=== PATIENT | male | born 1960 | race Caucasian/White ===

== ENCOUNTER → 2017-03-20 | Outpatient (CLI) | payer BC ==
[~2017-03-20] MED LIST: NAPR220C4 PO
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
== END | disposition home or self-care (01) ==
LOC: PNCL 09:23
PROVIDERS: ATTEND Anesthesiology
DX: M50.10 Cervical disc disorder with radiculopathy, unspecified cervical region (principal)
CPT/HCPCS: 99214

== ENCOUNTER → 2017-04-04 | Outpatient (CLI) | payer BC ==
[~2017-04-04] MED LIST changes: +IOHEXOL 180 MG/ML 10 ML VIAL. ONE; +methylPREDNISolone ACETATE 40 MG/ML VIAL. ONE; +methylPREDNISolone ACETATE 80 MG/ML VIAL. ONE
--- NOTE | 2017-04-04 12:56 | PAIN ---
DATE OF SERVICE: DIAGNOSES: Cervical radiculopathy with cervical degenerative disk disease, cervical spinal stenosis. HISTORY OF PRESENT ILLNESS: The patient is a 57-year-old male who returns for followup status post initial evaluation and preauthorization for cervical epidural steroid injection. The patient has obtained that now, would like to proceed, still significant pain in the base of the neck and mainly in the left upper extremity, but also some in the right hand and thumb. The patient reports no significant changes still. The patient reports pain is 7 on a scale 10 at its worst, 5 on average and 5 at its least and is a 5 today. Reports tingling, sharp, dull pain, constant, becoming more radiating, more noticeable now in the right thumb, but also in the left arm and hand. The patient reports no new motor or sensory deficits, no new bowel or bladder incontinence or other complaints. The patient reports it is waking him from sleep at 9 on the left side, about every 6 hours. He is needed to reposition or take pain medication to get back to sleep. The patient reports no new motor or sensory deficits, no new changes. PHYSICAL EXAMINATION: VITAL SIGNS: Today, the patient's blood pressure is 115/76, pulse 53, respirations 18, temperature 98.0 degrees Fahrenheit, height is 5 feet 10 inches, weight is 215 pounds. GENERAL: The patient is awake, alert, oriented, appropriate, very pleasant demeanor. HEENT: Head shows normocephalic, atraumatic. Extraocular movements are intact and symmetrical. Oral cavity: Mucous membranes moist and pink. Dentition is intact. NECK: Shows anterior throat supple without palpable lymphadenopathy noted. Swallow reflex symmetrical. CHEST: Shows normal with inspection. Breath sounds clear to auscultation bilaterally. HEART: Shows S1, S2 clear. No murmurs auscultated. ABDOMEN: Soft, nontender, nondistended. No palpable organomegaly. No rebound or guarding demonstrated. BACK: Shows spine grossly in midline. Cervical paraspinous muscle shows symmetrical on inspection, with palpation shows some moderate tenderness only diffusely bilaterally without radiation. The patient shows good rotational motion both laterally as well as extension and flexion without significant pain ____ on exam today. EXTREMITIES: The patient's upper extremities show deep tendon reflexes 2+ in the biceps, triceps tendons. Motor exam is 5/5 with destination coordinator strength on the left and 4/5 on the right. Bicep and tricep flexion are 5/5 and equal bilaterally. Peripheral pulses are 2+ radial distribution. No peripheral edema is noted. Options were discussed with the patient. The patient's old chart was reviewed. His current medication regimen updated. Current review of systems updated today as well. We will proceed with a cervical epidural steroid injection today with fluoroscopic guidance. Risks were again discussed including, but not limited to bleeding, infection, possibility of epidural hematoma, subsequent neurological compromise, dural puncture, headaches, spinal cord and/or nerve damage, side effects of steroid medication and poor results regarding pain control. The patient understands and wished to proceed. The patient will return to clinic in approximately 2 weeks for followup, was counseled on return appointment, activity level and side effects to be aware of. DIAGNOSES: Cervical radiculopathy with cervical degenerative disk disease, cervical spinal stenosis. PROCEDURE: Cervical epidural steroid injection, translaminar approach at the C6-7 level using C-arm fluoroscopic guidance under sterile prep and drape using local anesthetic. MEDICATION INJECTED: A total of 120 mg of Depo-Medrol, plus 5 mL preservative free normal saline and 2 mL of Isovue for contrast. CONDITION AT DISCHARGE: Stable. The patient tolerated procedure well, had no complications. JACQUIE MAZARIEGOS MD DR: OUMOU/jose alfredo JOB#: [id number] / [id number]
== END | disposition home or self-care (01) ==
LOC: PNCL 08:14
PROVIDERS: ATTEND Anesthesiology
DX: M50.123 Cervical disc disorder at C6-C7 level with radiculopathy (principal); M48.02 Spinal stenosis, cervical region
CPT/HCPCS: 62321; J1030; J1040